=== PATIENT | male | born 1990 | race Caucasian/White ===

== ENCOUNTER 2018-03-31 17:33 | Emergency (ER) | payer OTHER ==
--- NOTE | 2018-03-31 17:42 | ED Physician Documentation ---
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 Fever of 100.2 at home prior to arrival. No neck stiffness or nausea. 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 denies: Chills, Fatigue Ears: denies: Ear pain Nose: reports: Rhinorrhea / runny nose, Congestion, Sinus pressure / pain. denies: Foreign Body Throat: denies: Sore throat Cardiac: denies: Chest pain / pressure, Palpitations Respiratory: reports: Cough. denies: Dyspnea PD PAST MEDICAL HISTORY - Past Medical History Past Medical History: No - Past Surgical History Past Surgical History: Yes General: Appendectomy - Present Medications Home Medications: Ambulatory Orders Medication Instructions Recorded Confirmed Hydrocodone/Acetaminophen 1 - 2 each PO Q6H PRN #14 tablet 03/31/18 [Hydrocodon-Acetaminophen 5-325] - Allergies Allergies/Adverse Reactions: Allergies Allergy/AdvReac Type Severity Reaction Status Date / Time No Known Drug Allergies Allergy Verified 03/31/18 17:40 - Social History Does the pt smoke?: No Smoking Status: Never smoker Does the pt drink ETOH?: No Does the pt have substance abuse?: No - Immunizations Immunizations are current?: Yes PD ED PE NORMAL - Vitals Vital signs reviewed: Yes - General General: Alert and oriented X 3, No acute distress - HEENT HEENT: PERRL, EOMI, Ears normal, Moist mucous membranes, Pharynx benign - Neck Neck: Supple, no meningeal sign, No bony TTP - Cardiac Cardiac: RRR, No murmur - Respiratory Respiratory: Clear bilaterally - Abdomen Abdomen: Non tender - Neuro Neuro: Alert and oriented X 3, clod puller 2-12 intact, Normal speech Eye Opening: Spontaneous Motor: Obeys Commands Verbal: Oriented GCS Score: 15 - Psych Psych: Normal mood, Normal affect Results - Vitals Vitals: Vital Signs - 24 hr 03/31/18 03/31/18 17:39 19:03 Temperature 37.1 C Heart Rate 80 75 Respiratory 18 16 Rate Blood Pressure 149/107 H 126/65 O2 Saturation 99 100 Oxygen O2 Source Room air - Rads (name of study) CT Head Radiology: EMP read contemporaneously (Bilateral temporal arachnoid cysts) PD MEDICAL DECISION MAKING - ED course ED course: 27-year-old gentleman with headaches, pretty much inconsistent with subarachnoid hemorrhage or meningitis. He has a supple neck. He did have a fever but has some sinus symptoms as well. He does have arachnoid cyst which may be causative. Discussed need for follow-up for more advanced imaging. Departure - Departure Disposition: Home, Self Care Clinical Impression: Arachnoid cyst, Headache Condition: Good Record reviewed to determine appropriate education?: Yes Instructions: ED Cephalgia Unspecified Prescriptions: Hydrocodone/Acetaminophen [Hydrocodon-Acetaminophen 5-325] 1 - 2 each PO Q6H PRN #14 tablet PRN Reason: pain Comments: As discussed, you have bilateral benign appearing cysts in your brain. [place] and discuss and follow-up MRI to see if anything needs to be done about these. Some pain medication in the meantime should help. Your blood pressure was elevated today on check into the emergency department. This does not mean that you have hypertension, it is a common phenomenon to come to the emergency department and have elevated blood pressure. I recommend that you see your primary care physician within the week to have it rechecked when you are feeling better. Discharge Date/Time: 03/31/18 19:04
--- NOTE | 2018-03-31 18:42 | CT Report ---
Reason: headache Procedure Date: 03/31/2018 Accession Number: [id number] / [id number] Procedure: CT - Head W/O CPT Code: FULL RESULT: EXAM: CT HEAD EXAM DATE: 03/31/2018 06:19 PM. CLINICAL HISTORY: Headache. COMPARISON: None. TECHNIQUE: Multiaxial CT images were obtained from the foramen magnum to the vertex. Reformats: Sagittal and coronal. IV contrast: None. In accordance with CT protocol optimization, one or more of the following dose reduction techniques were utilized for this exam: automated exposure control, adjustment of mA and/or KV based on patient size, or use of iterative reconstructive technique. FINDINGS: Parenchyma: No intraparenchymal hemorrhage. No evidence of mass, midline shift, or CT findings of infarction. Pena-white differentiation is distinct. Extraaxial Spaces: Normal for age. No subdural or epidural collections. Ventricles: Normal in size and position. Sinuses and Orbits: Imaged paranasal sinuses, orbits, and mastoids show no significant abnormality. Bones: Unremarkable. Other: None. IMPRESSION: Normal head CT. [facility] ADDENDUM: 03/31/18 18:46 Also noted are bilateral arachnoid cysts in the temporal fossae, right larger than left.
[2018-03-31 19:04] VITALS: BP 126/65
== END 2018-03-31 19:04 | disposition home or self-care (01) ==
LOC: ED 17:33
DX: G93.0 Cerebral cysts (principal); R51 Headache
CPT/HCPCS: 70450; 99283

== ENCOUNTER 2018-05-28 09:47 | Outpatient (CLI) | payer OTHER ==
[2018-05-28] MEDS ORDERED: GADOBUTROL 10 MMOL/10 ML VIAL ONE (09:56)
[2018-05-28] MEDS ORDERED: GADOBUTROL 10 MMOL/10 ML VIAL IVP ONE (10:33)
--- NOTE | 2018-05-28 16:09 | MRI Report ---
Reason: CEREBRAL CYSTS Procedure Date: 05/28/2018 Accession Number: [id number] / [id number] Procedure: MRI - Brain W/WO CPT Code: FULL RESULT: EXAM: MRI BRAIN WITHOUT AND WITH CONTRAST EXAM DATE: 05/28/2018 10:54 AM. CLINICAL HISTORY: Headache. History of arachnoid cyst on head CT. COMPARISON: CT 03/31/2019. TECHNIQUE: Multiplanar, multisequence T1-weighted and fluid-sensitive MR sequences of the brain were performed. Sequences optimized for routine evaluation. Other: None. IV Contrast: 10 cc ProHance. FINDINGS: No cerebellar tonsillar ectopia is present. No abnormal restricted diffusion signal or magnetic susceptibility is present in the brain parenchyma. There is an extra-axial fluid collection in the anterior and medial aspect of the left middle cranial fossa measuring 3.5 x 2.4 cm in size. A smaller focus is seen in the anterior left middle cranial fossa measuring 2.1 x 0.8 cm in size. These follow CSF signal on all pulse sequences. There is no associated restricted diffusion signal or enhancement. There is mass effect on each anterior temporal lobe greater on the right relative to the left. There is no edema in the adjacent temporal lobe on the right or left. These findings are unchanged in size since the comparison head CT The ventricles are normal in size and configuration. No abnormal T2 or FLAIR hyperintense signal is seen in the brain parenchyma. There is an expected flow void in the major intracranial vessels at the skull base. No mass is identified in either orbit. No enhancing mass is identified in the visualized brain. Expected enhancement is seen in the major dural venous sinuses. The cavernous sinuses enhance in symmetric fashion. No mass is identified in either Meckel's cave. IMPRESSION: 1. There is an arachnoid cyst in the anterior aspect of each middle cranial fossa larger on the right relative to the left. 2. The contrast enhanced MRI brain is otherwise unremarkable. [facility]
== END 2018-05-28 09:48 | disposition home or self-care (01) ==
LOC: DI 09:47
PROVIDERS: ATTEND General Practice
DX: G93.0 Cerebral cysts (principal)
CPT/HCPCS: 70553; A9585

== ENCOUNTER 2023-09-23 17:45 | Outpatient (CLI) | payer OTHER ==
--- NOTE | 2023-09-24 14:02 | XRAY Report ---
PROCEDURE: Chest 2V INDICATIONS: HEMOPTYSIS,COUGH TECHNIQUE: 2 views of the chest were acquired. COMPARISON: None. FINDINGS: Surgical changes and devices: None. Lungs and pleura: No pleural effusions or pneumothorax. Lungs are clear. Mediastinum: Mediastinal contours appear normal. Heart size is normal. Bones and chest wall: No suspicious bony lesions. Overlying soft tissues appear unremarkable. IMPRESSION: No acute cardiopulmonary process. Reviewed by: Jesus An MD on 09/24/2023 2:01 PM PDT Approved by: Jesus An MD on 09/24/2023 2:01 PM PDT Station ID: [id number]
== END 2023-09-23 17:46 | disposition home or self-care (01) ==
LOC: DI 17:45
PROVIDERS: ATTEND Family Medicine
DX: R04.2 Hemoptysis (principal); R05.9 Cough, unspecified